=== PATIENT | female | born 1965 | race African-American/Black ===

== ENCOUNTER 2023-11-02 17:07 | Emergency (ER) | payer BC, OTHER ==
[2023-11-02 17:34] VITALS: BP 162/109; PULSE 82; RESP 16; TEMP 97.4; BMI 28.3
[2023-11-02] MEDS ORDERED: HURRICAINE SP EXT TUBE 1 EA EACH TP ONE (18:14)
== END 2023-11-02 19:45 | disposition home or self-care (01) ==
LOC: JER 17:07
PROC: 0CCM8ZZ Extirpation of Matter from Pharynx, Via Natural or Artificial Opening Endoscopic (ICD-10-PCS; principal; 2023-11-02)
DX: T17.220A Food in pharynx causing asphyxiation, initial encounter (principal)
CPT/HCPCS: 99283-25

== ENCOUNTER 2024-12-09 21:13 | Emergency (ER) | payer BC ==
[2024-12-09 21:24] VITALS: RESP 18; BMI 26.6
[2024-12-09 22:47] LABS: BASO % 0.4 % (0-2.0); EOS % 1.7 % (0-4.5); HEMATOCRIT 39.2 % (32.4-45.2); HEMOGLOBIN 13.1 GM/dL (10.7-15.3); LYMPH % 32.1 % (8-40); MCH 28.4 pg (25.7-33.7); MCHC 33.3 g/dl (32.0-36.0); MEAN CELL VOLUME 85.1 fl (80-96); MEAN PLT VOLUME 9.5 fl (7.5-11.1); MONO % 6.9 % (3.8-10.2); NEUT % 58.9 % (42.8-82.8); PLATELET COUNT 184 10^3/uL (134-434); RBC 4.61 M/mm3 (3.60-5.2); RDW 14.7 % (11.6-15.6); WHITE BLOOD COUNT 5.3 K/mm3 (4.0-10.0)
[2024-12-09 22:48] LABS: PROTHROMBIN TIME (PATIENT) 11.5 SEC (9.7-13.0)
[2024-12-09 22:51] LABS: ACTIVATED PTT 28.2 SECONDS (25.2-36.5)
[2024-12-09 22:51] LABS: PH,URINE 8.5 (5.0-8.0); URINE APPEARANCE CLOUDY; URINE BILIRUBIN NEGATIVE (NEGATIVE); URINE COLOR YELLOW; URINE GLUCOSE (UA) 1+ (NEGATIVE); URINE KETONE NEGATIVE (NEGATIVE); URINE LEUK ESTERASE NEGATIVE (NEGATIVE); URINE NITRITE NEGATIVE (NEGATIVE); URINE PROTEIN NEGATIVE (NEGATIVE); URINE UROBILINOGEN 0.2 mg/dL (0.2-1.0)
[2024-12-09 23:02] LABS: CHLORIDE 102 mmol/L (98-107); POTASSIUM 3.6 mmol/L (3.5-5.1); SODIUM 141 mmol/L (136-145)
[2024-12-09 23:04] LABS: CALCIUM 9.6 mg/dL (8.5-10.1)
[2024-12-09 23:05] LABS: ALBUMIN 3.8 g/dl (3.4-5.0); ANION GAP 8 mmol/L (4-13); CO2 31 mmol/L (21-32)
[2024-12-09 23:06] LABS: BLOOD UREA NITROGEN 15.1 mg/dL (7-18); GLUCOSE,RANDOM 226 mg/dL (74-106)
[2024-12-09 23:07] LABS: CREATININE 0.9 mg/dL (0.55-1.3); SGOT/AST 10 U/L (15-37); SGPT/ALT 14 U/L (13-61)
[2024-12-09 23:09] LABS: CHOLESTEROL 279 mg/dL (50-200)
[2024-12-09 23:10] LABS: LDL CHOLESTEROL (ONLY SJRH) 197 mg/dL (5-100); TOT PROT 7.2 g/dl (6.4-8.2)
[2024-12-09 23:11] LABS: BILIRUBIN,TOTAL 0.5 mg/dL (0.2-1); HDL CHOLESTEROL 58 mg/dL (40-60)
[2024-12-09 23:12] LABS: ALK PHOS 87 U/L (45-117)
[2024-12-10] MEDS: LOSARTAN POTASSIUM 50 MG TABLET PO ONE (01:34)
[2024-12-10] MEDS ORDERED: LOSARTAN POTASSIUM 50 MG TABLET ONE (01:41)
[2024-12-10] MEDS ORDERED: DEXAMETHASONE SOD PHOSPHATE 10 MG/1 ML VIAL ONE (03:38)
[2024-12-10] MEDS ORDERED: ONDANSETRON 4 MG/2 ML VIAL ONE (03:38)
[2024-12-10] MEDS: DEXAMETHASONE SOD PHOSPHATE 10 MG/1 ML VIAL IVPUSH ONE (03:58)
[2024-12-10] MEDS: ONDANSETRON 4 MG/2 ML VIAL IVPUSH ONE (03:58)
[2024-12-10 09:53] VITALS: BP 143/87; PULSE 68; TEMP 98.1
== END 2024-12-10 10:31 | disposition short-term general hospital (02) ==
LOC: JER 21:13
PROC: 3E033GC Introduction of Other Therapeutic Substance into Peripheral Vein, Percutaneous Approach (ICD-10-PCS; principal; 2024-12-10)
PROC: 3E033GC Introduction of Other Therapeutic Substance into Peripheral Vein, Percutaneous Approach (ICD-10-PCS; 2024-12-10)
DX: R79.89 Other specified abnormal findings of blood chemistry (principal); H53.2 Diplopia; C79.31 Secondary malignant neoplasm of brain; C80.1 Malignant (primary) neoplasm, unspecified
CPT/HCPCS: 36415; 70450-TC; 80053; 80061; 81003; 82550; 83036; 84484; 85025; 85610; 85730; 86850; 86900; 86901; 93005; 93010; 99285-25; J1100